=== PATIENT | female | born 1930 ===

== ENCOUNTER 2016-04-03 09:14 | Day surgery (SDC) | payer MEDICARE, MEDICAID ==
[~2016-04-03] VITALS: Ht 149.9 cm; Wt 57.7 kg
[~2016-04-03 09:14] MED LIST: ACETAMINOPHEN 500 MG TAB (TYLENOL) PO PRN; CHONDROITIN/HYALURONATE (DISCOVISC) 1 ML SYR IO ONE; PHENYLEPHRINE/KETOROLAC 4 ML VIAL IO ONE; SODIUM CHLORIDE FLUSH 3 ML SYR IV PRN; TETRACAINE 0.5% OPHTHALMIC SOLUTION 2 ML BTL ONE; diphenhydrAMINE 50 MG/ML INJ (BENADRYL) IV PRN
[2016-04-03] MEDS ORDERED: ALBU8CC IH (09:32)
[2016-04-03] MEDS ORDERED: GLUC-212 PO (09:32)
[2016-04-03] MEDS ORDERED: METO25TA60 PO (09:32)
[2016-04-03] MEDS ORDERED: VIT-9 PO (09:32)
[2016-04-03] MEDS ORDERED: POTA-57 PO (09:32)
[2016-04-03] MEDS ORDERED: FLUT1DIS2 IH (09:32)
[2016-04-03] MEDS ORDERED: PRD10T PO (09:32)
[2016-04-03] MEDS ORDERED: NF-LISIN40 PO (09:32)
[2016-04-03] MEDS ORDERED: AMLO10TA82 PO (09:32)
[2016-04-03] MEDS ORDERED: ASPI-586 PO (09:32)
[2016-04-03] MEDS ORDERED: HYDR-3922 PO (09:32)
[2016-04-03] MEDS ORDERED: LORA10TA76 PO (09:32)
[2016-04-03] MEDS ORDERED: LORA0.5T PO (09:32)
[2016-04-03] MEDS ORDERED: RANI75TA21 PO (09:32)
[2016-04-03] MEDS ORDERED: ONDA4TAB41 PO (09:32)
[2016-04-03] MEDS ORDERED: ACET-2264 PO (09:32)
[2016-04-03] MEDS ORDERED: LVT.05T PO (09:32)
[2016-04-03] MEDS ORDERED: ATOR20TA PO (09:32)
[2016-04-03] MEDS ORDERED: [UNRECOGNIZED DRUG - CODE] PO (09:32)
[2016-04-03] MEDS ORDERED: ASCO500T20 PO (09:32)
[2016-04-03 10:08] VITALS: BP 135/65
[2016-04-03] MEDS: LIDOCAINE 3.5% OPHTH GEL (AKTEN) 1 ML BTL OD SCH ×4 (10:32→11:10)
[2016-04-03] MEDS ORDERED: ALFENTANIL 1,000 MCG/2 ML AMP IV ONE (10:44)
[2016-04-03] MEDS ORDERED: MIDAZOLAM 2 MG/2 ML (VERSED) VIAL ONE (10:44)
[2016-04-03] MEDS: CATARACT PRE-OP EYE DROPS 0.5ML SYRINGE OD SCH ×3 (10:45→11:10)
[2016-04-03] MEDS: HOME MEDICATION OD SCH ×3 (10:45→11:10)
[2016-04-03 11:58] VITALS: BP 142/63
== END 2016-04-03 12:26 | disposition home or self-care (01) ==
LOC: ASC 09:14
PROVIDERS: ATTEND Ophthalmology
DX: H26.9 Unspecified cataract (principal); H53.8 Other visual disturbances; I10 Essential (primary) hypertension; E78.5 Hyperlipidemia, unspecified; E03.9 Hypothyroidism, unspecified; F41.9 Anxiety disorder, unspecified; J45.909 Unspecified asthma, uncomplicated
CPT/HCPCS: 36415; 66984; 84132; A9270; C9447; J2250; V2632